=== PATIENT | female | born 1985 | race Asian ===

== ENCOUNTER 2021-06-25 15:22 | Outpatient (CLI) | payer OTHER ==
[2021-06-25 17:11] LABS: BHCG - Serum Negative (NEGATIVE); Pregs Control Background? CLEAR/WHITE (CLR/WHITE); Pregs Control Bar Appear? YES (CONTROL BAR)
[2021-06-26 12:08] LABS: SARS-CoV-2 PCR by NAA Not Detected (NotDetected)
== END 2021-06-25 15:23 | disposition home or self-care (01) ==
LOC: LABBT 15:22
PROVIDERS: ATTEND Student in an Organized Health Care Education/Training Program
DX: Z01.812 Encounter for preprocedural laboratory examination (principal); E05.00 Thyrotoxicosis with diffuse goiter without thyrotoxic crisis or storm; E04.9 Nontoxic goiter, unspecified; H05.20 Unspecified exophthalmos; F45.8 Other somatoform disorders; R22.1 Localized swelling, mass and lump, neck; Z20.822 Contact with and (suspected) exposure to COVID-19
CPT/HCPCS: 84703; 85014; U0003; U0005

== ENCOUNTER 2021-06-30 08:56 | Observation (INO) | payer OTHER ==
[2021-06-30] MEDS ORDERED: Lidocaine 1% w/Epinephrine 1:100K 20 ML VIAL ONE (10:38)
[2021-06-30] MEDS ORDERED: Fentanyl 250 MCG/5 ML VIAL ONE (11:10)
[2021-06-30] MEDS ORDERED: Acetaminophen 500 MG TAB ONE (11:10)
[2021-06-30] MEDS ORDERED: Ondansetron PF 4 MG/2 ML Vial ONE ×3 (11:33→18:21)
[2021-06-30] MEDS ORDERED: Ketorolac Tromethamine 30 MG/ML VIAL ONE (11:33)
[2021-06-30] MEDS ORDERED: PROPOFOL 200 MG/20 ML VIAL ONE (11:33)
[2021-06-30] MEDS ORDERED: PHENYLEPHRINE-NS 100 MCG/ML 10 ML SYRINGE ONE (11:33)
[2021-06-30] MEDS ORDERED: Dexamethasone 20 MG/5 ML VIAL ONE (11:33)
[2021-06-30] MEDS ORDERED: Rocuronium Bromide 10 MG/ML (10ML VIAL) ONE (11:33)
[2021-06-30] MEDS ORDERED: Lidocaine 1% PF 5 ML VIAL ONE (11:33)
[2021-06-30] MEDS ORDERED: HYDROcodone/Acetaminophen 5/325 mg Tablet PO PRN ×2 (15:33)
[2021-06-30] MEDS ORDERED: Fentanyl 100 MCG/2 ML VIAL ONE (15:36)
[2021-06-30] MEDS ORDERED: Ondansetron ODT 4 MG TAB PO PRN (15:40)
[2021-06-30] MEDS ORDERED: Calcitriol 0.25 MCG CAP PO SCH (15:45)
[2021-06-30 16:16] LABS: Actual Bicarbonate (HCO3v) 19 mEq/L (22-28); Calcium, Ionized (venous) 1.06 mmol/L (1.16-1.32); Chloride (VBG) 104 mmol/L (98-106); Hemoglobin (Hb) 14.5 g/dL (11.7-15.5); Potassium (VBG) 4.04 mmol/L (3.70-5.30); Sodium 136.7 mmol/L (133-146); pH (venous) 7.42 (7.32-7.43)
[2021-06-30 16:39] LABS: Calcium 8.6 mg/dL (7.8-10.44); Magnesium 1.8 mg/dL (1.6-2.6); Phosphorus 2.3 mg/dL (2.3-4.7)
[2021-06-30] MEDS ORDERED: Calcium Gluc 4.6 MEQ/10 ML (100 MG/ML) SLOW IVP SCH (18:00)
[2021-06-30] MEDS ORDERED: Calcium Carbonate 500 MG ChewTAB PO PRN (18:59)
[2021-06-30] MEDS: Calcium Carbonate 500 MG TAB PO SCH ×2 (19:23→20:43)
[2021-06-30] MEDS: Lactated Ringer's 1,000 ML IV SCH ×2 (19:24→20:48)
[2021-06-30] MEDS: Ondansetron PF 4 MG/2 ML Vial IVP PRN (20:45)
[2021-06-30 22:53] VITALS: BMI 22.1
[2021-07-01] MEDS: Ondansetron PF 4 MG/2 ML Vial IVP PRN (08:04)
[2021-07-01 08:06] VITALS: BP 97/63; TEMP 97.3
[2021-07-01] MEDS ORDERED: Calcitriol 0.25 MCG CAP PO SCH (09:00)
[2021-07-01] MEDS ORDERED: FLU VACC QS2021-22(6MOS UP)/PF 60 MCG/0.5 ML SYRINGE IM ONE (09:00)
[2021-07-01] MEDS: Calcium Carbonate 500 MG TAB PO SCH (09:15)
== END 2021-07-01 11:00 | disposition home or self-care (01) ==
LOC: SDC 08:56 → SURG A 15:05
PROVIDERS: ADMIT Student in an Organized Health Care Education/Training Program; ATTEND Student in an Organized Health Care Education/Training Program
PROC: 0GTK0ZZ Resection of Thyroid Gland, Open Approach (ICD-10-PCS; principal; 2021-06-30)
DX: E05.20 Thyrotoxicosis with toxic multinodular goiter without thyrotoxic crisis or storm (principal); F45.8 Other somatoform disorders; Z79.899 Other long term (current) drug therapy
CPT/HCPCS: 36415; 82310; 82805; 83735; 83970; 84100; 88307; 96374; 96376; G0378; J1100; J1885; J2405; J2704; J3010; J7120

== ENCOUNTER 2021-10-28 14:19 | Outpatient (CLI) | payer OTHER | END 2021-10-28 14:20 | disposition home or self-care (01) | LOC: BICULT 14:19 | PROVIDERS: ATTEND Nurse Practitioner Family | DX: N92.0 Excessive and frequent menstruation with regular cycle (principal); R10.2 Pelvic and perineal pain; N85.8 Other specified noninflammatory disorders of uterus; Z86.018 Personal history of other benign neoplasm | CPT/HCPCS: 76856 ==